=== PATIENT | female | born 1985 | race Caucasian/White ===

== ENCOUNTER 2017-06-24 11:42 | Inpatient (IN) | payer BC ==
[2017-06-24] MEDS ORDERED: AMPICILLIN 2 GM/NS (PMX) 100 ML (12:11)
[2017-06-24] MEDS: AMPICILLIN 2 GM/NS (PMX) 100 ML IV (12:14)
[2017-06-24] MEDS: LACTATED RINGER'S 1,000 ML IV ×2 (12:14→18:55)
[2017-06-24] MEDS ORDERED: IBUPROFEN 600 MG TAB PO (12:30)
[2017-06-24] MEDS ORDERED: OXYTOCIN 30 UNITS/LR 500 ML IV ×2 (12:30→16:00)
[2017-06-24] MEDS ORDERED: BUTORPHANOL 2 MG INJ IV (12:30)
[2017-06-24] MEDS ORDERED: MISOPROSTOL 200 MCG TAB PR ×2 (12:30→16:00)
[2017-06-24] MEDS ORDERED: LIDOCAINE 1% (MPF) 30 ML INJ INJ (12:30)
[2017-06-24] MEDS ORDERED: CARBOPROST 250 MCG INJ IM ×2 (12:30→16:00)
[2017-06-24] MEDS ORDERED: METHYLERGONOVINE 0.2 MG INJ IM ×2 (12:30→16:00)
[2017-06-24 12:55] LABS: ADD MAN DIFF? NO
[2017-06-24 12:58] LABS: BASOPHIL # 0.1 10^3/ul (0.0-0.1); BASOPHILS % 0.5 % (0.0-2.0); EOSINOPHILS # 0.5 10^3/ul (0.0-0.5); EOSINOPHILS % 4.8 % (0.0-7.0); HEMATOCRIT 37.7 % (37.0-47.0); HEMOGLOBIN 12.2 g/dl (12.0-16.0); LYMPHOCYTES # 1.8 10^3/ul (0.8-2.9); LYMPHOCYTES % 18.2 % (15.0-51.0); MEAN CORPUSCULAR HEMOGLOBIN 31.1 pg (29.0-33.0); MEAN CORPUSCULAR HGB CONC 32.4 g/dl (32.0-37.0); MEAN CORPUSCULAR VOLUME 96.2 fl (82.0-101.0); MEAN PLATELET VOLUME 10.5 fl (7.4-10.4); MONOCYTE # 0.7 10^3/ul (0.3-0.9); MONOCYTES % 6.7 % (0.0-11.0); NEUTROPHIL # 6.7 10^3/ul (1.6-7.5); NEUTROPHILS % 69.2 % (39.0-77.0); PLATELET COUNT 267 10^3/UL (140-415); RED BLOOD COUNT 3.92 10^6/ul (4.20-5.40); RED CELL DISTRIBUTION WIDTH 14.4 % (11.5-14.5)
[2017-06-24 12:58] LABS: WHITE BLOOD COUNT 9.7 10^3/ul (4.8-10.8)
[2017-06-24 13:17] LABS: INR 0.92; PROTIME 12.4 Sec (11.9-14.9)
[2017-06-24 13:18] LABS: PARTIAL THROMBOPLASTIN TIME 30.4 Sec (25.0-35.0)
[2017-06-24] MEDS: OXYTOCIN 30 UNITS/LR 500 ML IV ×2 (14:21→15:13)
[2017-06-24 15:21] LABS: HEPATITIS B SURFACE ANTIGEN NEGATIVE (NEGATIVE)
[2017-06-24] MEDS ORDERED: ZOLPIDEM 5 MG TAB PO (16:00)
[2017-06-24] MEDS ORDERED: OXYCODONE/ASPIRIN (4.88/325) TAB PO ×2 (16:00)
[2017-06-24] MEDS ORDERED: LANOLIN 7 GM TUBE TOP (16:00)
[2017-06-24] MEDS ORDERED: AMPICILLIN 1 GM/NS (PMX) 50 ML IV (16:30)
[2017-06-24 16:42] LABS: RAPID PLASMA REAGIN NONREACTIVE (NR)
[2017-06-24] MEDS: IBUPROFEN 600 MG TAB PO ×2 (17:57→23:24)
[2017-06-24] MEDS: WITCH HAZEL/GLYCERIN PAD PR (18:01)
[2017-06-24] MEDS: BENZOCAINE 20% 56 ML SPRAY TOP (18:02)
[2017-06-24] MEDS: SENNA/DOCUSATE NA (8.6MG/50MG) TAB PO (23:24)
[2017-06-25] MEDS: LACTATED RINGER'S 1,000 ML IV (03:00)
[2017-06-25] MEDS: IBUPROFEN 600 MG TAB PO ×4 (05:52→23:35)
[2017-06-25] MEDS: SENNA/DOCUSATE NA (8.6MG/50MG) TAB PO ×2 (09:00→21:00)
[2017-06-25 11:13] LABS: ADD MAN DIFF? NO
[2017-06-25 11:23] LABS: BASOPHIL # 0.1 10^3/ul (0.0-0.1); BASOPHILS % 0.4 % (0.0-2.0); EOSINOPHILS # 0.7 10^3/ul (0.0-0.5); EOSINOPHILS % 6.1 % (0.0-7.0); HEMATOCRIT 34.9 % (37.0-47.0); HEMOGLOBIN 11.4 g/dl (12.0-16.0); LYMPHOCYTES # 2.3 10^3/ul (0.8-2.9); LYMPHOCYTES % 19.3 % (15.0-51.0); MEAN CORPUSCULAR HEMOGLOBIN 31.4 pg (29.0-33.0); MEAN CORPUSCULAR HGB CONC 32.7 g/dl (32.0-37.0); MEAN CORPUSCULAR VOLUME 96.1 fl (82.0-101.0); MEAN PLATELET VOLUME 10.3 fl (7.4-10.4); MONOCYTE # 0.6 10^3/ul (0.3-0.9); MONOCYTES % 4.8 % (0.0-11.0); NEUTROPHIL # 8.2 10^3/ul (1.6-7.5); PLATELET COUNT 261 10^3/UL (140-415); RED BLOOD COUNT 3.63 10^6/ul (4.20-5.40); RED CELL DISTRIBUTION WIDTH 14.4 % (11.5-14.5)
[2017-06-26] MEDS: IBUPROFEN 600 MG TAB PO ×2 (05:46→12:22)
[2017-06-26] MEDS: SENNA/DOCUSATE NA (8.6MG/50MG) TAB PO (08:36)
[2017-06-26] MEDS: DIPHTH/TET/ACEL PERTUSS (ADULT) 0.5 ML VIAL IM* (09:00)
== END 2017-06-26 14:30 | disposition home or self-care (01) | DRG 775 ==
LOC: OBT 11:42 → L-D 11:42 → OBT 12:04 → L-D 11:50 → PP1 15:35
PROVIDERS: Obstetrics & Gynecology
PROC: 10E0XZZ Delivery of Products of Conception, External Approach (ICD-10-PCS; principal; 2017-06-24)
DX: O80 Encounter for full-term uncomplicated delivery (principal); Z3A.38 38 weeks gestation of pregnancy; Z37.0 Single live birth
CPT/HCPCS: 85025; 85610; 85730; 86592; 86850; 86900; 86901; 87340